=== PATIENT | male | born 1985 | race Caucasian/White ===

== ENCOUNTER 2017-02-12 23:10 | Emergency (ER) | payer SELFPAY ==
[2017-02-12] MEDS ORDERED: LACTATED RINGERS 1,000 ML IVS ONE (23:25)
[2017-02-12] MEDS ORDERED: KETOROLAC TROMETHAMINE INJ 30 MG/ML VIAL IV ONE (23:25)
[2017-02-12] MEDS ORDERED: ORPHENADRINE CITRATE 30 MG/ML AMP IV ONE (23:25)
--- NOTE | 2017-02-13 00:18 | ED.PDOC ---
History of Present Illness - General Chief Complaint: Back Pain or Injury Stated Complaint: low back pain Time Seen by Provider: 02/12/17 23:24 Source: patient Exam Limitations: no limitations - History of Present Illness Initial Comments: Luis Greenwood 31 y/o male stated that on waking up after a nap robb had sudden onset of sharp left sided low back pain radiating to the back of his left leg down to his left foot.Denies bowel or bladder dysfunction.Has history of lower back injury which happened at work due to lifting but no work comp was done had seen chiropractor and spinal manipulation done but stated his low back pains lingered but non radiating and stopped seeing chiropractor. Timing/Duration: 4-6 hours Quality/Severity: sharpness Back Pain Location: lumbar spine Back Pain Radiation: lower legs, feet Method of Injury/Prior Injury: other - see hpi Improving Factors: rest Worsening Factors: movement Associated Symptoms: lower back pain Allergies/Adverse Reactions: Allergies NO KNOWN ALLERGY Allergy (Verified 02/12/17 23:24) Home Medications: Ambulatory Orders Baclofen 20 mg PO BID #20 tab 02/13/17 Tramadol HCl 50 mg PO Q6HRS PRN #20 tab 02/13/17 predniSONE 20 mg PO DAILY #10 tab 02/13/17 Review of Systems - Review of Systems Constitutional: States: no symptoms reported EENTM: States: no symptoms reported Respiratory: States: no symptoms reported Cardiology: States: no symptoms reported Gastrointestinal/Abdominal: States: no symptoms reported Genitourinary: States: no symptoms reported Musculoskeletal: States: see HPI Skin: States: no symptoms reported Neurological: States: no symptoms reported Past Medical History (General) - Patient Medical History Hx MRSA: No Hx Other PMH: Yes - chronic low back pain x 2 years-work injury Surgical History: no surgical history - Vaccination History Hx Influenza Vaccination: No - Social History Hx Physical Abuse: No Hx Emotional Abuse: No Hx Suspected Abuse: No - Triage Comment ED Triage Comment: pain to lower back all day, denies trauma or lifting objects Family Medical History - Family History Father Family History: No Known Physical Exam - Physical Exam General Appearance: Alert, Anxious, No apparent distress Eyes, Ears, Nose, Throat Exam: PERRL/EOMI, normal ENT inspection, pharynx normal Neck Exam: non-tender, full range of motion, normal alignment, normal inspection Cardiovascular/Respiratory: regular rate, rhythm, no M/R/G, normal peripheral pulses, normal breath sounds Peripheral Pulses: radial,right: 2+, radial,left: 2+, dorsalis pedis,right: 2+, dorsalis pedis,left: 2+ Gastrointestinal/Abdominal: normal bowel sounds, non tender, soft, no organomegaly Back Exam: normal inspection, no CVA tenderness, no vertebral tenderness Extremity Exam: no evidence of injury, non-tender, no pedal edema Neurologic: no motor/sensory deficits, alert, oriented x 3, other - DTR 2 + bilaterally;SLR test positive 35 degrees left leg Skin Exam: normal color, warm/dry Departure - Departure Clinical Impression: Lumbar back pain with radiculopathy affecting left lower extremity, Lumbar disc herniation with radiculopathy Time of Disposition: 02:49 Disposition: Discharge to Home or Self Care Departure Forms: ED Discharge - Pt. Copy, Patient Portal Self Enrollment Instructions: DI for Low Back Pain, DI for Back Pain With Sciatica, DI for Back Spasm, DI for Herniated Disc, Herniated Disc Prescriptions: Tramadol HCl 50 mg PO Q6HRS PRN #20 tab PRN Reason: Pain Baclofen 20 mg PO BID #20 tab predniSONE 20 mg PO DAILY #10 tab Home Medications: Ambulatory Orders Baclofen 20 mg PO BID #20 tab 02/13/17 Tramadol HCl 50 mg PO Q6HRS PRN #20 tab 02/13/17 predniSONE 20 mg PO DAILY #10 tab 02/13/17 Additional Instructions: NEED TO SIGN UP WITH PRIMARY MD [id number] call for appointment in am 11/2016
[2017-02-13 01:46] VITALS: O2SAT 98
--- NOTE | 2017-02-13 02:39 | RAD ---
Procedure: XR LUMBAR SPINE 2-3 VIEWS Exam Date: 02/13/2017 Ordering Provider: Weston Galvez Clinical Indication: pain Comparison: None Findings: There is no acute fracture or subluxation. Intervertebral disc space narrowing at L5-S1. Vertebral body heights and intervertebral disc spaces are otherwise preserved. There are no lytic or sclerotic lesions. The sacroiliac joints are normal. Impression: No acute fracture or subluxation of the lumbar spine. Electronically signed by: Aleksey Levin MD 02/13/2017 2:38 AM [facility]
[2017-02-13] MEDS ORDERED: HYDROcodone 10MG/APAP 325MG 1 EA TAB PO ONE (02:46)
[2017-02-13 03:35] VITALS: BP 121/68; TEMP 98.2
== END 2017-02-13 03:15 | disposition home or self-care (01) ==
LOC: ER 23:10
DX: M51.16 Intervertebral disc disorders with radiculopathy, lumbar region (principal)
CPT/HCPCS: 36415; 72100; 80048; 80307; 81001; 85025; 85651; 86140; J1885; J2360; J7120